=== PATIENT | female | born 1965 ===

== ENCOUNTER 2018-12-12 15:34 | Emergency (ER) | payer OTHER ==
[2018-12-12] MEDS: ACETAMINOPHEN 325 MG TAB PO (18:08)
== END 2018-12-12 18:08 | disposition home or self-care (01) ==
LOC: FTE 15:34
DX: S16.1XXA Strain of muscle, fascia and tendon at neck level, initial encounter (principal); V89.2XXA Person injured in unspecified motor-vehicle accident, traffic, initial encounter
CPT/HCPCS: 99282; Z7502